=== PATIENT | male | born 1995 | race Caucasian/White ===

== ENCOUNTER 2018-07-17 09:43 | Emergency (ER) | payer OTHER ==
[~2018-07-17] VITALS: Wt 78.0 kg
[~2018-07-17 09:43] MED LIST: ALBU8.5H8 INH
[2018-07-17 09:52] VITALS: BP 135/83; PULSE 74; RESP 18
[2018-07-17] MEDS ORDERED: ONDANSETRON (ODT) 4 MG TAB ODT STA (10:07)
[2018-07-17] MEDS ORDERED: HYDROCODONE/APAP (5/325) TAB PO ONE (10:30)
[2018-07-17] MEDS ORDERED: HYDR-4011 PO (11:28)
[2018-07-17] MEDS ORDERED: NAPR-985 PO (11:28)
[2018-07-17] MEDS ORDERED: CYCL10TA7 PO (11:28)
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
== END 2018-07-17 12:11 | disposition home or self-care (01) ==
LOC: FTE 09:43
DX: M54.2 Cervicalgia (principal); R07.89 Other chest pain; R10.30 Lower abdominal pain, unspecified; J45.909 Unspecified asthma, uncomplicated
CPT/HCPCS: 71045; 76705